=== PATIENT | male | born 2000 | race Caucasian/White ===

== ENCOUNTER 2022-06-15 01:51 | Emergency (ER) | payer OTHER ==
[~2022-06-15] VITALS: Ht 180.3 cm; Wt 88.6 kg
[2022-06-15 02:41] LABS: HEMATOCRIT 45.7 % (42.0-52.0); HEMOGLOBIN 14.7 g/dl (13.5-17.5); MEAN CORPUSCULAR HEMOGLOBIN 29.9 pg (27.0-33.0); MEAN CORPUSCULAR HGB CONC 32.2 g/dl (32.0-36.5); MEAN CORPUSCULAR VOLUME 92.9 fl (80.0-96.0); PLATELET COUNT, AUTOMATED 192 10^3/uL (150-450); RED BLOOD COUNT 4.92 10^6/uL (4.30-6.10); WHITE BLOOD COUNT 6.5 10^3/uL (4.0-10.0)
[2022-06-15 03:06] LABS: ALBUMIN 3.8 G/DL (3.2-5.2); ALKALINE PHOSPHATASE 67 U/L (46-116); ALT/SGPT 32 U/L (7.0-40); AST/SGOT 30 U/L (<34); BILIRUBIN,TOTAL 0.8 MG/DL (0.3-1.2); BLOOD UREA NITROGEN 24 MG/DL (9-23); CALCIUM LEVEL 8.7 MG/DL (8.5-10.1); CARBON DIOXIDE LEVEL 26 MMOL/L (20-31); CHLORIDE LEVEL 106 MMOL/L (98-107); CREATININE FOR GFR 0.98 MG/DL (0.70-1.30); GLOMERULAR FILTRATION RATE > 60.0 (>60); GLUCOSE, FASTING 86 MG/DL (60-100); POTASSIUM SERUM 4.1 MMOL/L (3.5-5.1); SODIUM LEVEL 139 MMOL/L (136-145); TOTAL PROTEIN 7.1 G/DL (5.7-8.2)
[2022-06-15] MEDS ORDERED: SUCRALFATE 1 GM TAB PO ONE (10:40)
[2022-06-15] MEDS ORDERED: GI COCKTAIL 50ML BTL(HYOSCYAMINE/MAALOX/LIDOCAINE VISCOUS)(1:3:1) PO ONE (10:40)
[2022-06-15] MEDS ORDERED: PANTOPRAZOLE 40MG VIAL IV ONE (10:40)
[2022-06-15] MEDS ORDERED: PANTOPRAZOLE 40MG TAB (PROTONIX) PO ONE (10:50)
[2022-06-15] MEDS ORDERED: KETOROLAC 60MG 2ML VIAL IM ONE (11:50)
[2022-06-15] MEDS ORDERED: ONDA4TAB6 PO (11:52)
[2022-06-15] MEDS ORDERED: HYDR-3713 PO (11:53)
[2022-06-15 11:58] VITALS: BP 121/75
== END 2022-06-15 12:15 | disposition home or self-care (01) ==
LOC: M ED 01:51
DX: K80.20 Calculus of gallbladder without cholecystitis without obstruction (principal); Z88.0 Allergy status to penicillin
CPT/HCPCS: 36415; 76705; 80053; 81002; 85027; 96372; 96374; 99283; J1885

== ENCOUNTER 2022-09-02 10:03 | Day surgery (SDC) | payer OTHER ==
[~2022-09-02] VITALS: Ht 180.3 cm; Wt 92.5 kg
[~2022-09-02 10:03] MED LIST: CelecoXIB 400 MG CAP PO ONE; HYDR-3713 PO; INDOCYANINE GREEN 25MG VIAL (IC-GREEN) IV ONE; LIDOCAINE 2% 100MG/5ML SDV (FOR ANES.) As Ordered ONE; LevoFLOXacin IV 750 MG in IV 1 EA IV ONE; MIDAZOLAM INJ 2MG/2ML VIAL As Ordered ONE; ONDA4TAB6 PO; ROCURONIUM BROMIDE 50MG/5ML VIAL As Ordered ONE; fentaNYL 250 MCG/5 ML INJECTION As Ordered ONE; propofoL 200 MG/20 ML VIAL As Ordered ONE
[2022-09-02] MEDS ORDERED: LR 1,000 ML IV SCH ×2 (10:30→13:45)
[2022-09-02] MEDS ORDERED: LIDOCAINE 1% SDV 30ML VIAL As Ordered ONE ×2 (12:06→19:33)
[2022-09-02] MEDS ORDERED: BUPIVACAINE HCL 0.25% 30ML VIAL As Ordered ONE ×2 (12:06→19:33)
[2022-09-02] MEDS ORDERED: ROCURONIUM BROMIDE 50MG/5ML VIAL As Ordered ONE (12:43)
[2022-09-02] MEDS ORDERED: ACETAMINOPHEN 1000MG 100ML IV BAG As Ordered ONE (12:55)
[2022-09-02] MEDS ORDERED: KETOROLAC 60MG 2ML VIAL As Ordered ONE (12:55)
[2022-09-02] MEDS ORDERED: ONDANSETRON 4MG 2ML VIAL As Ordered ONE (12:55)
[2022-09-02] MEDS ORDERED: INDOCYANINE GREEN 25MG VIAL (IC-GREEN) As Ordered ONE (12:55)
[2022-09-02] MEDS ORDERED: ePHEDrine SULFATE 25 MG/5 ML(5MG/ML) SYRINGE As Ordered ONE (13:14)
[2022-09-02] MEDS ORDERED: ONDANSETRON 4MG 2ML VIAL IV PRN (13:45)
[2022-09-02] MEDS ORDERED: HYDROMORPHONE HCL 0.5 MG/ 0.5 ML SYRINGE IV PRN (13:45)
[2022-09-02] MEDS: fentaNYL 100 MCG/2 ML INJECTION IV PRN ×2 (14:04→14:15)
[2022-09-02] MEDS: oxyCODONE 5MG TAB PO PRN ×2 (14:04→14:37)
[2022-09-02 15:04] VITALS: BP 123/62
== END 2022-09-02 15:27 | disposition home or self-care (01) ==
LOC: M SDC 10:03
PROVIDERS: ATTEND Surgery
DX: K80.20 Calculus of gallbladder without cholecystitis without obstruction (principal); Z88.0 Allergy status to penicillin
CPT/HCPCS: 47563; 88304; J0131; J1100; J1885; J1956; J2250; J2405; J3010; Q9968; S0020; S2900